=== PATIENT | male | born 1985 | race American Indian/Alaskan Native ===

== ENCOUNTER 2018-07-21 02:00 | Emergency (ER) | payer SELFPAY ==
[2018-07-21] MEDS ORDERED: MOTRIN ONE (04:21)
[2018-07-21] MEDS ORDERED: MOTRIN PO ONE (04:23)
[2018-07-21 09:22] VITALS: BP 111/76
--- NOTE | 2018-07-21 09:24 | Emergency Department Report ---
HPI - General Chief Complaint: Sore Throat Time Seen by Provider: 07/21/18 09:05 - HPI HPI: 32-year-old male presents to the emergency department with complaint of a few days of sore throat, fever, head congestion and what he says is flulike symptoms. He has taken some Tylenol at home and some other [id number] medications without any relief. No recent travel or sick contacts at home. No asthma history. No primary care physician. ED Past Medical Hx - Past Medical History Previous Medical History?: No - Surgical History Past Surgical History?: No - Social History Smoking Status: Never Smoker - Medications Home Medications: Home Medications Medication Instructions Recorded Confirmed Last Taken Type RX: Amoxicillin [Trimox CAP] 500 mg PO Q8H #30 capsule 07/21/18 Unknown Rx ED Review of Systems ROS: Stated complaint: FLU SX Other details as noted in HPI Comment: All other systems reviewed and negative Constitutional: chills, fever Eyes: denies: eye pain, vision change ENT: throat pain, congestion Respiratory: denies: cough, shortness of breath Cardiovascular: denies: chest pain, palpitations Gastrointestinal: denies: abdominal pain, vomiting Genitourinary: denies: dysuria, discharge Musculoskeletal: myalgia. denies: joint swelling Skin: denies: rash, lesions Neurological: denies: headache, weakness Physical Exam - Physical Exam Vital Signs: Vital Signs 07/21/18 07/21/18 04:13 04:28 Temperature 102.6 F H Pulse Rate 100 H Respiratory 20 20 Rate Blood Pressure 121/71 O2 Sat by Pulse 97 Oximetry Physical Exam: GENERAL: The patient is well-developed well-nourished. HEENT: Normocephalic. Atraumatic. Patient has moist mucous membranes. Patient has bilateral tonsillar hypertrophy and erythema. EYES: Extraocular motions are intact. Pupils are equal and reactive to light bilaterally. NECK: Supple. Trachea is midline. Bilateral tender but mobile submandibular lymph nodes. CHEST/LUNGS: Clear to auscultation. There is no respiratory distress noted. HEART/CARDIOVASCULAR: Regular. There is no tachycardia. There is no obvious murmur. ABDOMEN: Abdomen is soft, nontender. Patient has normal bowel sounds. There is no abdominal distention. SKIN: Skin is warm and dry. NEURO: The patient is awake, alert, and oriented. The patient is cooperative. The patient has no focal neurologic deficits. The patient has normal speech. MUSCULOSKELETAL: There is no tenderness or deformity. There is no evidence of acute injury. ED Course Vital Signs 07/21/18 07/21/18 04:13 04:28 Temperature 102.6 F H Pulse Rate 100 H Respiratory 20 20 Rate Blood Pressure 121/71 O2 Sat by Pulse 97 Oximetry ED Medical Decision Making - Medical Decision Making This patient presented with fever, sore throat, chills, body aches. His throat shows tonsillar hypertrophy and significant erythema. Positive for strep pharyngitis. Patient will be placed on amoxicillin. We discussed using Tylenol and ibuprofen for fever and discomfort. Fever resolved prior to discharge. - Differential Diagnosis strep pharyngitis, influenza, viral URI Critical Care Time: No Critical care attestation.: If time is entered above; I have spent that time in minutes in the direct care of this critically ill patient, excluding procedure time. ED Disposition Clinical Impression: Strep pharyngitis Disposition: TO HOME OR SELFCARE Is pt being admited?: No Condition: Stable Instructions: Strep Throat (ED) Additional Instructions: Please follow up with a primary care physician. Return to the emergency Department with any worsening of your symptoms or any acute distress. You can take Tylenol every 4 hours and ibuprofen every 6 hours, using weight-based dosing on the back of the bottle, as needed for fever or discomfort. Take the antibiotics as prescribed. Prescriptions: RX: Amoxicillin [Trimox CAP] 500 mg PO Q8H #30 capsule Referrals: PRIMARY MD JOAQUÍN [Primary Care Provider] - 3-5 Days RAJI MARIE MD [Staff Physician] - 3-5 Days [facility] [Outside] - 3-5 Days Time of Disposition: 09:23
== END 2018-07-21 09:29 | disposition home or self-care (01) ==
LOC: ED 02:00
DX: J02.0 Streptococcal pharyngitis (principal)
CPT/HCPCS: 87430; 99283